=== PATIENT | female | born 1975 | race Caucasian/White ===

== ENCOUNTER 2024-05-04 16:34 | Emergency (ER) | payer OTHER, SELFPAY ==
[2024-05-04 16:42] VITALS: BP 129/85
--- NOTE | 2024-05-04 16:51 | ED.PDOC.TRB ---
ED Provider Triage
-
A medical screening examination has been initiated by a qualified medical provider. Based on the assessment performed at this time, it has been determined that an emergent medical condition may exist and the patient has been informed that further
medical evaluation and possible additional diagnostic testing may be needed.
HPI: This is a medical evaluation conducted in person to initiate diagnostic evaluation and provide initial therapeutics. Please see further documentation by the treating clinician.
GENERAL: Alert , uncomfortable
EYE: No visual abnormalities.
NECK: Trachea midline
ENT: No visible abnormalities.
LUNGS: No acute respiratory distress
mild tenderness R flank
no RUQ tenderness
no cva tendneress
NEUROLOGICAL: Alert and oriented
SKIN: Skin intact. No visible changes.
MUSCULOSKELETAL: Moving extremities normally
PSYCH: Normal and appropriate interaction.
49 y/o F
h/o remote kidney stones
here with R flank pain
started in her back a few weeks ago and now since last night worse right flank
feels uncomfortable, wants to stand
concern for possible stone
suspect less likely albert
will check labs, ua, ct, IM toradol
took motrin this am
lmp 2 weeks ago
[2024-05-04 17:10] LABS: % Basophils 0.8 % (0-2); % Eosinophils 6.2 % (0-6); % Immature Granulocytes 0.2 % (0-0.5); % Lymphocytes 29.3 % (20.5-51.1); % Monocytes 6.2 % (1.7-9.3); % Neutrophils 57.3 % (42.2-75.2); Absolute Basophils 0.1 10^3/uL (0-0.2); Absolute Eosinophils 0.5 10^3/uL (0-0.7); Absolute Lymphocytes 2.5 10^3/uL (1.2-3.4); Absolute Monocytes 0.5 10^3/uL (0.1-0.6); Hemoglobin 13.5 g/dL (12.0-16.0); Mean Corp Hgb Conc. 35.5 g/dL (33.0-37.0); Mean Corpuscular Hgb 31.7 pg (27.0-31.0); Mean Corpuscular Volume 89.2 fL (81.0-99.0); Mean Platelet Volume 10.2 fL (7.4-10.4); Nucleated Red Blood Cells % 0 %; Platelet Count 279 10^3/uL (130-400); Red Blood Cell Count 4.26 10^6/uL (4.20-5.40); Red Cell Dist. Width 12.7 % (11.5-14.5); White Blood Cell Count 8.7 10^3/uL (4.8-10.8)
[2024-05-04 17:12] LABS: Urine Albumin Negative (Neg - Trace); Urine Bilirubin Negative (Negative); Urine Character Clear (Clear); Urine Color Straw; Urine Glucose Negative (Negative); Urine Ketone Negative (Negative); Urine Leukocyte Negative (Negative); Urine Nitrite Negative (Negative); Urine Occult Blood Negative (Negative); Urine Specific Gravity 1.015 (<1.030); Urine Urobilinogen Negative (Neg - 1+)
[2024-05-04 17:21] LABS: ALT (SGPT) 10 U/L (0-35); AST (SGOT) 22 U/L (14-36); Albumin 4.5 g/dl (3.5-5.0); Alkaline Phosphatase 95 U/L (38-126); Blood Urea Nitrogen 10 mg/dl (7-17); Calcium 9.4 mg/dl (8.4-10.2); Carbon Dioxide 27 mmol/L (22-30); Chloride 107 mmol/L (98-107); Glucose 99 mg/dl (70-99); HCG, Serum Qualitative Screen Negative; Lipase 95 U/L (23-300); Potassium 4.1 mmol/L (3.5-5.1); Sodium 143 mmol/L (135-145); Total Bilirubin 0.5 mg/dl (0.2-1.3); Total Protein 6.8 g/dl (6.3-8.2); eGFR > 60.00
--- NOTE | 2024-05-04 18:26 | ED.GENMED ---
History of Present Illness
General
Chief Complaint: Flank Pain
Source: patient
Exam Limitations: none
Time Seen by Provider: 05/04/24 18:06
History of Present Illness
History of Present Illness:
This is 49 year old female that comes in with c/o right flank. States that this started a couple of days ago with some back pain and then it went away. States that last night the pain come back and it was more on the right flank. States that she did
have diarrhea today. Denies any fever, chills, chest pain, SOB, nausea, vomiting, headache, dizziness, urinary burning.
Past History
Past History
ED Past Medical History: GERD; Negative Asthma, CAD or CHF
ED Past Surgical History: (X3) and Gynecological ([place])
Social History
Tobacco: Smoker
Alcohol: Occasional
Drug: None
Personal:
Living: with family
Employment: Employed
Family History
Family History: Negative Early CAD or CAD
Review of Systems
Review of Systems
All Other Systems: ROS reviewed and negative except as documented in HPI and ROS
Constitutional: Reports no symptoms; Denies fever or chills
EENT: Reports no symptoms
Respiratory: Reports no symptoms; Denies cough or trouble breathing
Cardiac: Reports no symptoms; Denies chest pain
ABD/GI: Reports abdominal pain (right sided more flank) and diarrhea; Denies nausea or vomiting
: Reports flank pain (Right sided); Denies dysuria, frequency or urgency
Musculoskeletal: Reports no symptoms
Skin: Reports no symptoms
Neurological: Reports no symptoms; Denies dizzy or headache
Psychiatric: Reports no symptoms
Phy Exam
General Physical Exam
General Presentation: well appearing and no apparent distress
General age: appears stated age
General Skin: warm and dry
General Habitus: normal
General Mental: alert
General Hydration: appears well hydrated
ENT Exam
ENT Exam: TM's normal, pharynx normal and neck supple
Eye Exam
Eye Exam: EOMI
Cardiovascular Exam
Cardiovascular Exam: regular rate/rhythm, no edema, no murmur and normal peripheral pulses
Pulmonary Exam
Pulmonary Exam: lungs clear, no respiratory distress, no rales, chest non tender, no crackles, no rhonchi, no wheezing and no cough
Gastrointestinal Exam
Gastrointestinal Exam: soft, no organomegaly, no pulsatile mass, non distended, tender (Very slight right sided tenderness with palpation mid flank) and other (Hypoactive bowel sounds)
Musculoskeletal Exam
Musculoskeletal Exam: full ROM and no edema
Skin Exam
Skin Exam: normal color, warm/dry, no rash and no petechia
Psychiatric Exam
Psychiatric Exam: normal mood/affect
Course
Orders/Labs/Results
Orders:
Orders
05/04/24 16:48
Test Result ONCE
05/04/24 16:50
CT Abd/pel Without Iv Or Oral Urgent
Comment:
Reason For Exam: R flank pain
05/04/24 16:58
CBC/With Diff [Complete Blood Count/With Diff] Urgent
Comprehensive Metabolic Panel Urgent
HCG, Serum Qualitative Screen Urgent
Lipase Urgent
Urinalysis Reflex To Culture Urgent
Date Specimen was Collected: 05/04/24
Time Specimen was Collected: 16:46
05/04/24 18:24
Acetaminophen [Tylenol] 1,000 mg PO NOW STA
Ibuprofen [Motrin] 600 mg PO NOW STA
Abnormal Lab Results
05/04/24
16:58
MCH 31.7 H pg
(27.0-31.0)
Eosinophils % 6.2 H %
(0-6)
05/04/24 16:58
05/04/24 16:58
Labs unremarkable. Urine negative for infection or blood, HCT negative. Lipase normal at 95
Vital Signs
Initial and Last Documented VS:
Initial Vital Signs
Temp Pulse Resp BP Pulse Ox
98.4 F 85 16 129/85 98
05/04/24 16:42 05/04/24 16:42 05/04/24 16:42 05/04/24 16:42 05/04/24 16:42
Last Documented Vital Signs
Temp Pulse Resp BP Pulse Ox
98.4 F 85 16 129/85 98
05/04/24 16:42 05/04/24 16:42 05/04/24 16:42 05/04/24 16:42 05/04/24 16:42
MDM/Problems Addressed
Differential Diagnosis Includes:
Gallbladder disease, Renal calculus,
MDM/Problems Addressed:
This is a 49 year old female that comes in with c/o right flank pain. States that she had back pain a couple of weeks ago but this went away. Then last night her pain come back and it was more on the flank. States that she didn't sleep well last
night.
Will check labs and CT scan. will medicate for pain.
Back into see patient. Explained that her blood work is normal. CT shows that her appendix is normal along with her Gallbladder. Negative for any renal calculus. Her stomach is a little distened and that this could be a Gastritis. Will place patient
on Protonix and have patient follow up with the family doctor. Patient to return with any concerns.
Chronic conditions affecting care:
NA
Acute Exacerbation and/or Progression of Chronic Illness:
NA
*Radiology
Radiology exam reviewed: radiology read reviewed (CT- NO evidence of renal calculus. Normal appendix. There is mild distention of th stomach with mild gastric antral thickening which may represent an element of gastritis. There is asymmetric
sclerosis of the right sacroiliac joint which may be degenerative in natures. Scattered hepatic cyst. )
*Pulse Oximetry
Patient hypoxic: no
*EKG
Interpreted by ED Provider?: NA
Rate: EKG- N/A
*Business Office Associate Interpretation
Rate: Business Office Associate- N/A
*Critical Care Note
Total Time (30-74mins, 75-104mins- exclusive of procedures): Not Applicable
ED Attending Note
-
Portions of this chart may have been created with voice recognition software.� Occasional wrong word or��sound alike� substitutions may have occurred due to the inherent limitations of voice recognition software.
Discharge Plan
Departure
Patient Disposition: Home (Routine Discharge)
Date of Disposition: 05/04/24
Time of Disposition: 19:39
Patient with high blood pressure during this ER visit?: Yes
Condition: Good
Covid-19: Not Applicable
Discharge Problem:
Abdominal pain, Gastritis
Instructions: Gastritis (DC), BLOOD PRESSURE
Prescriptions:
New
pantoprazole [Protonix] 40 mg tablet,delayed release (DR/EC)
40 mg PO DAILY Qty: 30 0RF
No Action
omeprazole 40 MG capsule,delayed release(DR/EC)
40 mg PO DAILY
Doxycycline
PRN (Reason: acne)
Patient Comments:
patient takes only when she has flare up and does not know dose.
Zantac
DAILY
Patient Comments:
dose unknow
ibuprofen 600 MG tablet
600 mg PO Q8HPRN PRN (Reason: pain) Qty: 24 0RF
Referrals:
Jewels Aviles PA-C [Family Provider] - Call in 1-3 days for appt
Activity Restrictions/Additional Instructions:
As discussed, your blood work is normal. Your CT is negative for any renal calculus and your appendix is normal. There are some cyst on the liver and your stomach is a little distended which could represent Gastritis. You have had a prescription
sent to your Pharmacy for Protonix. This will help coat the stomach lining. Try and stay away form caffeine as this is very irritating to the stomach lining. Follow up with the family doctor. IF YOU HAVE INCREASED OR CHANGING PAIN, OR YOU HAVE ANY
OTHER CONCERNS PLEASE RETURN TO THE EMERGENCY ROOM.
Interventions
Interventions:
*Risk Screen - Suicide Last Done: 05/04/24 16:42
*General Assessment Last Done: 05/04/24 16:42
*Neglect/Abuse Screening Last Done: 05/04/24 16:42
Discharge Date and Time
Print Language: KOSOVAN
[2024-05-04] MEDS: TYLENOL 1000 MG PO (18:27)
[2024-05-04] MEDS: MOTRIN 600 MG PO (18:27)
[2024-05-04 19:35] VITALS: BP 132/70
[2024-05-04] MEDS: PROTONIX 40 MG PO (19:49)
== END 2024-05-04 20:25 | disposition home or self-care (01) ==
LOC: EMR 16:34
PROVIDERS: Emergency Medicine; EMERGENCY PHYSICIAN Emergency Medicine; FAMILY PHYSICIAN Physician Assistant Medical
DX: K29.70 Gastritis, unspecified, without bleeding (principal); R10.9 Unspecified abdominal pain; F17.200 Nicotine dependence, unspecified, uncomplicated
CPT/HCPCS: 99284; 74176; 80053; 81003; 83690; 84703; 85025

== ENCOUNTER → 2024-09-23 16:20 | Outpatient (REF) | payer OTHER, SELFPAY | LOC: WDC 16:20 | PROVIDERS: ATTENDING PHYSICIAN Nurse Practitioner Family; FAMILY PHYSICIAN Physician Assistant Medical | DX: Z12.31 Encounter for screening mammogram for malignant neoplasm of breast (principal) | CPT/HCPCS: 77063; 77067 ==

== ENCOUNTER → 2024-09-28 14:07 | Outpatient (REF) | payer OTHER, SELFPAY | LOC: RAD 14:07 | PROVIDERS: ATTENDING PHYSICIAN Nurse Practitioner Family; FAMILY PHYSICIAN Physician Assistant Medical | DX: N93.9 Abnormal uterine and vaginal bleeding, unspecified (principal) | CPT/HCPCS: 76830; 76856 ==

== ENCOUNTER → 2024-09-29 10:05 | Outpatient (REF) | payer OTHER, SELFPAY | LOC: WDC 10:05 | PROVIDERS: ATTENDING PHYSICIAN Nurse Practitioner Family; FAMILY PHYSICIAN Physician Assistant Medical | DX: R92.8 Other abnormal and inconclusive findings on diagnostic imaging of breast (principal) | CPT/HCPCS: 77065 ==

== ENCOUNTER → 2024-10-09 06:43 | Outpatient (REF) | payer OTHER, SELFPAY | LOC: WDC 06:43 | PROVIDERS: ATTENDING PHYSICIAN Nurse Practitioner Family | DX: R92.1 Mammographic calcification found on diagnostic imaging of breast (principal) | CPT/HCPCS: 19081 ==

== ENCOUNTER → 2024-12-28 09:29 | Outpatient (REF) | payer OTHER, SELFPAY | LOC: WDC 09:29 | PROVIDERS: ATTENDING PHYSICIAN Nurse Practitioner Family; FAMILY PHYSICIAN Physician Assistant Medical | DX: R92.8 Other abnormal and inconclusive findings on diagnostic imaging of breast (principal) | CPT/HCPCS: 77061; 77065 ==